=== PATIENT | male | born 1960 | race Caucasian/White ===

== ENCOUNTER 2021-02-13 01:09 | Inpatient (IN) | payer MEDICARE ==
[~2021-02-13] VITALS: Ht 180.3 cm; Wt 80.8 kg
[2021-02-13] MEDS ORDERED: SODIUM CHLORIDE FLUSH 10ML SYR IVF ONE (01:30)
[2021-02-13] MEDS ORDERED: PANTOPRAZOLE 40 MG IV IVPush ONE (01:30)
[2021-02-13] MEDS ORDERED: ONDANSETRON 2MG/ML, 2ML IVPush ONE (01:30)
[2021-02-13] MEDS ORDERED: SODIUM CHLORIDE 0.9% 1,000 ML IV ONE (01:30)
[2021-02-13] MEDS ORDERED: ONDANSETRON 2MG/ML, 2ML ONE (01:37)
[2021-02-13] MEDS ORDERED: PANTOPRAZOLE 40 MG IV ONE (01:37)
[2021-02-13] MEDS ORDERED: PANTOPRAZOLE 80 MG in SODIUM CHLORIDE 0.9% 100 ML IV ONE (02:00)
[2021-02-13] MEDS ORDERED: MORPHINE SULFATE 4 MG/ML, 1ML IVPush PRN (02:00)
[2021-02-13] MEDS ORDERED: MORPHINE SULFATE 4 MG/ML, 1ML ONE (02:02)
--- NOTE | 2021-02-13 02:05 | NUR ---
PT PRESENTS VIA [facility] FROM [facility] C/O ABDOMINAL PAIN, SOB, AND COFFEE GROUND EMEIS. SCANT AMOUNT FOUND IN TRASH BIN AT SNF PER EMS. NO VOMITING SINCE ARRIVAL TO ED. WAS RECENTLY TREATED FOR CVA THAT OCCURED PER PT, X2 MONTHS AGO. HAS BEEN TAKING LOVENOX AND ASA DAILY DUE TO THE PRIOR CVA. HX OF CHF, HLD, HTN, NOT COAGULATED. PER [facility] STAFF, PT HAS BEEN HAVING INCREASED WEAKNESS AND FALLS, WITH NO LOC.
[2021-02-13 02:13] LABS: BASOPHILS % (AUTO) 1 % (0-1); EOSINOPHILS % (AUTO) 1 % (1-7); LYMPHOCYTES % (AUTO) 11 % (22-44); MEAN CORPUSCULAR HEMOGLOBIN 30.6 pg (27.5-34.5); MEAN PLATELET VOLUME 8.6 fL (7.4-10.4); MONOCYTES % (AUTO) 6 % (2-9); NEUTROPHILS % (AUTO) 81 % (42-75); PLATELET COUNT 389 x10^3/uL (130-400); RED BLOOD COUNT 4.42 x10^6/uL (4.38-5.82)
[2021-02-13 02:26] LABS: ALANINE AMINOTRANSFERASE 63 U/L (12-78); ALBUMIN 2.8 g/dL (3.4-5.0); ANION GAP 6 mmol/L (5-15); CALCIUM 8.7 mg/dL (8.5-10.1); CHLORIDE 106 mmol/L (98-107); CREATININE 0.91 mg/dL (0.7-1.3)
--- NOTE | 2021-02-13 02:27 | NUR ---
PT HAD X2 EPISODES OF COFFEE GROUND EMESIS, MODERATE AMOUNT. ADDITIONAL IV ESTBALISHED. 1L NSS BOLUS INITIATED, ANTI NAUSEA AND PPI GIVEN. PAIN MEDS GIVEN WELL. PT VITALS WNL AT THIS TIME, SINU TACH ON MONITOR. CALL VICTORIA WITHIN REACH. PENDING RESULTS AT THIS TIME.
[2021-02-13 02:28] LABS: INTERNATIONAL NORMALIZED RATIO 1.05 (0.93-1.1); PROTHROMBIN TIME 11.2 Seconds (9.6-11.5)
[2021-02-13 02:30] LABS: ALKALINE PHOSPHATASE 78 U/L (45-117); BILIRUBIN,TOTAL 0.6 mg/dL (0.2-1.0); TOTAL PROTEIN 6.9 g/dL (6.4-8.2); TROPONIN I < 0.015 ng/mL (0.000-0.045)
--- NOTE | 2021-02-13 02:44 | NUR ---
PT TRANSITIONED TO HOSPITAL BED AT THIS TIME, DUE TO PENDING ADMISSION STATUS. PT MADE MORE COMFORTABLE. VITALS STABLE. PROTONIX DRIP RUNNING.
--- NOTE | 2021-02-13 02:48 | NUR ---
AYDEN [phone]
--- NOTE | 2021-02-13 02:53 | NUR ---
PT TRANSPORTED TO CT AT THIS TIME.
[2021-02-13] MEDS ORDERED: OMNIPAQUE 350 MG/ML, 100ML BOTTLE ONE (03:18)
--- NOTE | 2021-02-13 03:22 | NUR ---
CALLED DR. CASTANO ED ATTENDING TO BEDSIDE RAPIDLY DUE TO PTS DECLINING RESPIRATORY STATUS. HAD TO INCREASE PTS O2 TO 6L VIA NC. PT HAS GURGLING IN BACK OF OROPHARYNX. I ATTEMPTED TO DEEP SUCTION PT. PT HAS PROMINENT GAG REFLEX. PT HERE DUE TO COFFEE GROUND EMESIS. I DO NOT WANT TO FURTHER INDUCE VOMITING. PT SATS 83% ON 2L. PT HAS SATS BETWEEN 88-92% ON 6L. DR. CASTANO ASKED PT IF HE WANTED TO BE INTUBATED. PT DECLINED. WILL CONTINUE TO MONITOR PTS STATUS FOR FURTHER DECLINE
--- NOTE | 2021-02-13 03:41 | NUR ---
PT DOING BETTER RESPIRATORY [place], ABLE TO SUCTION THICK SECERETIONS, HELPED IMPORVE BREATHING AND O2 SATS. REMAINS ON 6L VIA NC AT THIS TIME.
[2021-02-13] MEDS ORDERED: CEFTRIAXONE 1,000 MG in DEXTROSE 5% 50 ML IVPB ONE (04:30)
[2021-02-13] MEDS ORDERED: PLEASE ENTER ALLERGIES MC SCH (04:30)
[2021-02-13] MEDS ORDERED: AZITHROMYCIN 500 MG in SODIUM CHLORIDE 0.9% 250 ML IVPB ONE (04:30)
--- NOTE | 2021-02-13 04:30 | NUR ---
PT REPOSIONED IN BED AT THIS TIME.
--- NOTE | 2021-02-13 04:40 | NUR ---
SUPERVISOR FILM PROCESSING AT BEDSIDE COMPLETING BLOOD CX. WILL ADMINISTER ORDERED ABX AFTER COMPLETED.
[2021-02-13] MEDS ORDERED: ACETAMINOPHEN 325 MG TABLET PO PRN (05:00)
[2021-02-13] MEDS ORDERED: ACETAMINOPHEN 650 MG SUPP PR PRN (05:00)
[2021-02-13] MEDS: PANTOPRAZOLE 80 MG in SODIUM CHLORIDE 0.9% 100 ML IV SCH ×2 (05:18→16:26)
--- NOTE | 2021-02-13 05:26 | NUR ---
PROTONIX DRIP STOPPED A TTHIS TIME PER HOSPITALIST ORDER. IV AZITHROMAX INITIATED AT THIS TIME.
--- NOTE | 2021-02-13 06:28 | NUR ---
REPORT TO MYRON KAN
--- NOTE | 2021-02-13 06:43 | NUR ---
PT BEING TRANSPORTED TO IP ROOM AT THIS TIME
[2021-02-13] MEDS ORDERED: ONDANSETRON 2MG/ML, 2ML IV PRN (08:00)
[2021-02-13 08:34] VITALS: BP 130/80
[2021-02-13] MEDS: GUAIFENESIN ER 600 MG TABLET PO SCH ×2 (09:59→19:47)
[2021-02-13] MEDS: POTASSIUM CHLORIDE 10 MEQ in LACTATED RINGERS 1,000 ML IV SCH ×2 (10:02→16:27)
[2021-02-13 15:19] VITALS: BP 133/79
[2021-02-13] MEDS: CEFTRIAXONE 2 GM in DEXTROSE 5% 50 ML IVPB SCH (17:39)
[2021-02-13 18:45] VITALS: BP 136/69
[2021-02-13] MEDS: SUCRALFATE 1 GM/10 ML UDC PO SCH (22:17)
[2021-02-13 23:27] VITALS: BP 141/98
[2021-02-14 02:30] VITALS: BP 108/56
[2021-02-14] MEDS: PANTOPRAZOLE 80 MG in SODIUM CHLORIDE 0.9% 100 ML IV SCH (04:08)
[2021-02-14] MEDS ORDERED: MULT-658 PO (04:19)
[2021-02-14] MEDS ORDERED: ACET650S21 PO (04:19)
[2021-02-14] MEDS ORDERED: BACL5TAB PO (04:19)
[2021-02-14] MEDS ORDERED: ASPI-1026 PO (04:19)
[2021-02-14] MEDS ORDERED: HYDR50TA99 PO (04:19)
[2021-02-14] MEDS ORDERED: LANS30CA PO (04:19)
[2021-02-14] MEDS ORDERED: ATOR40TA78 PO (04:19)
[2021-02-14] MEDS ORDERED: DOCU-131 PO (04:19)
[2021-02-14] MEDS ORDERED: AMLO5TAB4 PO (04:19)
[2021-02-14] MEDS ORDERED: ENOX40SY4 SQ (04:19)
[2021-02-14] MEDS ORDERED: thiamine PO (04:19)
[2021-02-14] MEDS ORDERED: LACT10PA3 PO (04:19)
[2021-02-14] MEDS ORDERED: FOLI1TAB32 PO (04:19)
[2021-02-14] MEDS: AZITHROMYCIN 500 MG in SODIUM CHLORIDE 0.9% 250 ML IV SCH (05:32)
[2021-02-14] MEDS ORDERED: ACET325T14 PO (05:55)
[2021-02-14 06:09] LABS: BASOPHILS % (AUTO) 1 % (0-1); EOSINOPHILS % (AUTO) 2 % (1-7); LYMPHOCYTES % (AUTO) 18 % (22-44); MEAN CORPUSCULAR HEMOGLOBIN 31.5 pg (27.5-34.5); MEAN CORPUSCULAR HGB CONC 34.5 g/dL (33.2-36.2); MEAN PLATELET VOLUME 8.4 fL (7.4-10.4); MONOCYTES % (AUTO) 7 % (2-9); NEUTROPHILS % (AUTO) 72 % (42-75); PLATELET COUNT 257 x10^3/uL (130-400); RED BLOOD COUNT 3.22 x10^6/uL (4.38-5.82); RED CELL DISTRIBUTION WIDTH 13.9 % (9.4-14.8)
[2021-02-14 06:24] LABS: CHLORIDE 109 mmol/L (98-107)
[2021-02-14 06:43] LABS: ALANINE AMINOTRANSFERASE 48 U/L (12-78); ALBUMIN 2.1 g/dL (3.4-5.0); ALKALINE PHOSPHATASE 57 U/L (45-117); ANION GAP 4 mmol/L (5-15); BILIRUBIN,TOTAL 0.4 mg/dL (0.2-1.0); CALCIUM 7.3 mg/dL (8.5-10.1); CREATININE 0.61 mg/dL (0.7-1.3); TOTAL PROTEIN 5.3 g/dL (6.4-8.2)
[2021-02-14] MEDS ORDERED: POTASSIUM CHLORIDE 10 MEQ in LACTATED RINGERS 1,000 ML IV SCH (09:00)
[2021-02-14 09:30] VITALS: BP 127/75
[2021-02-14] MEDS: GUAIFENESIN ER 600 MG TABLET PO SCH ×2 (09:51→21:53)
[2021-02-14] MEDS: SUCRALFATE 1 GM/10 ML UDC PO SCH ×4 (09:51→21:53)
[2021-02-14 12:09] VITALS: BP 131/76
[2021-02-14] MEDS ORDERED: hydrOXyzine 50MG TABLET PO PRN (13:00)
[2021-02-14] MEDS: PANTOPRAZOLE 40 MG IV IVPush SCH ×2 (14:14→21:53)
[2021-02-14] MEDS: CEFTRIAXONE 2 GM in DEXTROSE 5% 50 ML IVPB SCH (17:35)
[2021-02-14] MEDS: DOCUSATE 100 MG CAPSULE PO SCH (17:35)
[2021-02-14 18:39] VITALS: BP 150/93
[2021-02-14] MEDS: ATORVASTATIN 40 MG TABLET PO SCH (21:53)
[2021-02-15 02:18] VITALS: BP 99/71
[2021-02-15] MEDS: SUCRALFATE 1 GM/10 ML UDC PO SCH ×4 (05:27→20:51)
[2021-02-15] MEDS: AZITHROMYCIN 500 MG in SODIUM CHLORIDE 0.9% 250 ML IV SCH (05:27)
[2021-02-15 05:43] LABS: BASOPHILS % (AUTO) 0 % (0-1); EOSINOPHILS % (AUTO) 1 % (1-7); LYMPHOCYTES % (AUTO) 13 % (22-44); MEAN CORPUSCULAR HEMOGLOBIN 31.2 pg (27.5-34.5); MEAN CORPUSCULAR HGB CONC 34.1 g/dL (33.2-36.2); MONOCYTES % (AUTO) 7 % (2-9); NEUTROPHILS % (AUTO) 79 % (42-75); PLATELET COUNT 256 x10^3/uL (130-400); RED BLOOD COUNT 3.23 x10^6/uL (4.38-5.82); RED CELL DISTRIBUTION WIDTH 13.9 % (9.4-14.8)
[2021-02-15] MEDS: DOCUSATE 100 MG CAPSULE PO SCH ×2 (06:34→20:02)
[2021-02-15 07:16] VITALS: BP 95/58
[2021-02-15] MEDS: THIAMINE 100MG TABLET PO SCH (09:32)
[2021-02-15] MEDS: MULTIVITAMIN 1 TABLET PO SCH (09:32)
[2021-02-15] MEDS: GUAIFENESIN ER 600 MG TABLET PO SCH ×2 (09:32→20:51)
[2021-02-15] MEDS: PANTOPRAZOLE 40 MG IV IVPush SCH ×2 (09:32→22:07)
[2021-02-15 12:11] VITALS: BP 139/72
[2021-02-15 12:14] VITALS: BP 129/78
[2021-02-15] MEDS: CEFTRIAXONE 2 GM in DEXTROSE 5% 50 ML IVPB SCH (17:39)
[2021-02-15 20:16] VITALS: BP 128/78
[2021-02-15] MEDS: ATORVASTATIN 40 MG TABLET PO SCH (20:51)
[2021-02-16 02:45] VITALS: BP 108/64
[2021-02-16] MEDS: AZITHROMYCIN 500 MG in SODIUM CHLORIDE 0.9% 250 ML IV SCH (05:31)
[2021-02-16 06:22] LABS: BASOPHILS % (AUTO) 1 % (0-1); EOSINOPHILS % (AUTO) 4 % (1-7); LYMPHOCYTES % (AUTO) 27 % (22-44); MEAN CORPUSCULAR HEMOGLOBIN 31.1 pg (27.5-34.5); MEAN CORPUSCULAR HGB CONC 34.1 g/dL (33.2-36.2); MEAN PLATELET VOLUME 9.6 fL (7.4-10.4); MONOCYTES % (AUTO) 10 % (2-9); NEUTROPHILS % (AUTO) 59 % (42-75); PLATELET COUNT 246 x10^3/uL (130-400); RED BLOOD COUNT 3.23 x10^6/uL (4.38-5.82); RED CELL DISTRIBUTION WIDTH 13.9 % (9.4-14.8)
[2021-02-16 07:23] VITALS: BP 112/67
[2021-02-16] MEDS: MULTIVITAMIN 1 TABLET PO SCH (08:51)
[2021-02-16] MEDS: GUAIFENESIN ER 600 MG TABLET PO SCH ×2 (08:51→21:28)
[2021-02-16] MEDS: SUCRALFATE 1 GM/10 ML UDC PO SCH ×4 (08:51→21:28)
[2021-02-16] MEDS: THIAMINE 100MG TABLET PO SCH (08:51)
[2021-02-16] MEDS: DOCUSATE 100 MG CAPSULE PO SCH ×2 (08:52→21:00)
[2021-02-16] MEDS: PANTOPRAZOLE 40 MG IV IVPush SCH (10:56)
[2021-02-16 13:52] VITALS: BP 127/82
[2021-02-16] MEDS: PANTOPRAZOLE 40MG TABLET PO SCH (15:04)
[2021-02-16] MEDS: CEFTRIAXONE 2 GM in SODIUM CHLORIDE 0.9% 50 ML IVPB SCH (17:06)
[2021-02-16 20:12] VITALS: BP 146/84
[2021-02-16] MEDS: ATORVASTATIN 40 MG TABLET PO SCH (21:28)
[2021-02-16] MEDS ORDERED: TEMAZEPAM 15 MG CAPSULE PO PRN (21:30)
[2021-02-17 00:20] VITALS: BP 129/88
[2021-02-17 05:27] LABS: BASOPHILS % (AUTO) 1 % (0-1); EOSINOPHILS % (AUTO) 4 % (1-7); LYMPHOCYTES % (AUTO) 31 % (22-44); MEAN CORPUSCULAR HEMOGLOBIN 31.8 pg (27.5-34.5); MEAN CORPUSCULAR HGB CONC 34.4 g/dL (33.2-36.2); MEAN PLATELET VOLUME 8.9 fL (7.4-10.4); MONOCYTES % (AUTO) 9 % (2-9); NEUTROPHILS % (AUTO) 55 % (42-75); PLATELET COUNT 275 x10^3/uL (130-400); RED BLOOD COUNT 3.29 x10^6/uL (4.38-5.82); RED CELL DISTRIBUTION WIDTH 14.1 % (9.4-14.8)
[2021-02-17] MEDS: PANTOPRAZOLE 40MG TABLET PO SCH ×2 (05:32→16:24)
[2021-02-17] MEDS: AZITHROMYCIN 500 MG in SODIUM CHLORIDE 0.9% 250 ML IV SCH (05:32)
[2021-02-17] MEDS ORDERED: ASPIRIN 81 MG TABLET EC PO SCH (06:00)
[2021-02-17] MEDS: SUCRALFATE 1 GM/10 ML UDC PO SCH ×3 (08:01→16:24)
[2021-02-17] MEDS: GUAIFENESIN ER 600 MG TABLET PO SCH (08:02)
[2021-02-17] MEDS: MULTIVITAMIN 1 TABLET PO SCH (08:02)
[2021-02-17] MEDS: THIAMINE 100MG TABLET PO SCH (08:02)
[2021-02-17 08:11] VITALS: BP 123/72
[2021-02-17] MEDS: DOCUSATE 100 MG CAPSULE PO SCH (08:11)
[2021-02-17] MEDS ORDERED: SUCR1ORA5 PO (10:53)
[2021-02-17] MEDS ORDERED: ASPI81TA45 PO (10:53)
[2021-02-17] MEDS ORDERED: CEFD300C37 PO (10:53)
[2021-02-17] MEDS ORDERED: PANT40TA6 PO (10:53)
[2021-02-17 13:52] VITALS: BP 121/74
[2021-02-17] MEDS: CEFTRIAXONE 2 GM in SODIUM CHLORIDE 0.9% 50 ML IVPB SCH (17:00)
== END 2021-02-17 18:18 | DRG 377 ==
LOC: ED 01:30 → EDIP 04:54 → 3N 06:55
PROVIDERS: ADMIT Internal Medicine; ATTEND Hospitalist
DX: K57.91 Diverticulosis of intestine, part unspecified, without perforation or abscess with bleeding (principal); J18.9 Pneumonia, unspecified organism; I50.40 Unspecified combined systolic (congestive) and diastolic (congestive) heart failure; I69.351 Hemiplegia and hemiparesis following cerebral infarction affecting right dominant side; R13.10 Dysphagia, unspecified; F15.10 Other stimulant abuse, uncomplicated; F95.2 Tourette's disorder; Z20.822 Contact with and (suspected) exposure to COVID-19; K59.00 Constipation, unspecified; R53.81 Other malaise; I11.0 Hypertensive heart disease with heart failure; Z87.891 Personal history of nicotine dependence; Z79.82 Long term (current) use of aspirin
CPT/HCPCS: 36415; 71045; 74177; 80053; 83036; 83605; 83690; 83880; 84145; 84484; 85014; 85018; 85025; 85610; 85730; 86850; 86900; 87040; 93005; 96374; 96375; G0378; J0456; J0696; J2405; J3480; Q9967; U0005; C9113; J2270; J7030; J7050; J7120; U0003